=== PATIENT | male | born 1955 | race Caucasian/White ===

== ENCOUNTER 2020-07-09 07:34 | Emergency (ER) | payer OTHER, SELFPAY ==
[2020-07-09] VITALS (16 sets, daily range): BP systolic 103–120; BP diastolic 56–69; PULSE 64–78; RESP 18–26; TEMP 36.4; O2SAT 94–98
--- NOTE | ~2020-07-09 | CT_ITS ---
EXAMINATION: CT abdomen pelvis wo con DATE: 07/09/2020 08:56 INDICATION: Epigastric pain. TECHNIQUE: Computed tomography (CT) of the abdomen and pelvis was performed without intravenous contr ast. Automated exposure control and iterative reconstruction technique were employed. The dose-length product was 868.27 mGy-cm. COMPARISON: None FINDINGS: Small to moderate-sized bilateral pleural effusions with passive compressive atelectasis at the perip jame of the bilateral lower lungs. Cardiomegaly with pulmonary vascular congestion and mild pulmonary edema. Atherosclerotic coronary artery calcification and mitral annulus desiccation. Median sternoto my wires and mediastinal surgical clips are seen, likely from prior coronary artery bypass grafting. Nodular liver surface consistent with cirrhosis. Splenomegaly measuring 16.1 cm in maximal length. A couple tiny gallstones in the normal-appearing gallbladder. Pancreas and bilateral adrenal glands are normal. Bilateral renal cysts the largest on the left measuring 2.8 cm. Calcifications at the bilate ral kidneys which appears primarily related to extensive atherosclerotic disease with calcification s een throughout the aorta and numerous arteries throughout the abdomen, pelvis and proximal thighs. Al though nephrolithiasis cannot be absolutely excluded is considered unlikely and there is no hydroneph rosis. Bowels including the appendix are normal. Moderate amount of ascites throughout the abdomen an d pelvis. Bladder is normal. Prostatomegaly. Extensive body wall edema. Mild lumbar levocurvature wit h mild spondylosis. Bilateral femoral neck lag screws. Subacute left ninth, 10th and 11th rib fractur es with small amounts of callus formation. IMPRESSION: 1. Congestive heart failure with cardiomegaly, coronary artery disease, mild pulmonary edema and smal l to moderate bilateral pleural effusions. 2. Cirrhosis with moderate amount of ascites. 3. Splenomegaly likely related to portal venous hypertension. 4. Prostatomegaly. 5. Cholelithiasis. 6. Subacute left 9th, 10th and 11th rib fractures. Reviewed, dictated and finalized at location [facility] [employer] IMPRESSION: 1. Congestive heart failure with cardiomegaly, coronary artery disease, mild pu lmonary edema and small to moderate bilateral pleural effusions. 2. Cirrhosis with moderate amount of ascites. 3. Splenomegaly likely related to portal venous hypertension. 4. Prostatomegaly. 5. Cholelithiasis. 6. Subacute left 9th, 10th and 11th rib fractures.
--- NOTE | 2020-07-09 08:35 | ED.ABDPAIN ---
HPI - Abdominal Pain General Chief Complaint: Abdominal Pain Stated Complaint: abd pain Time Seen by Provider: 07/09/20 07:45 Source: patient Mode of arrival: EMS Limitations: no limitations History of Present Illness HPI narrative: 65-year-old man Hemodialysis patient Also history of CABG Presents from his hemodialysis clinic appointment for evaluation of abdominal pain Patient states he was about nursing home through his dialysis and started to get nauseated. 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[place] [employer] Home Medications Medication Instructions Recorded Confirmed B complex with C 20-folic acid cap 07/09/20 [[place] Caps] amlodipine 07/09/20 apixaban [Eliquis] mg 07/09/20 aspirin [Adult Low Dose Aspirin] 81 mg PO DAILY 07/09/20 atorvastatin 07/09/20 duloxetine mg PO 07/09/20 insulin detemir U-100 [Levemir SUBCUT BID 07/09/20 U-100 Insulin] insulin lispro [Humalog Pen] unit SUBCUT 07/09/20 meclizine 25 mg PO TID PRN 07/09/20 metoprolol tartrate 07/09/20 pantoprazole 40 mg PO BID 07/09/20 sevelamer carbonate 800 mg PO TID 07/09/20 torsemide 100 mg PO QAM 07/09/20 Allergies Allergy/AdvReac Type Severity Reaction Status Date / Time midazolam Allergy Mild Unknown Verified 07/09/20 07:46 iodine Allergy Unknown Unknown Verified 07/09/20 07:46 Contrast Media Allergy Intermediate Hives / Uncoded 07/30/17 11:29 Red Face Review of Systems Review of Systems: All systems reviewed & are unremarkable except as noted in HPI and below Constitutional: Constitutional: Denies chills, Denies fatigue, Denies fever(s), Denies headache(s) and Denies weakness Eyes: Eyes: Reports no additional eye complaints and Denies change in vision ENT: Denies headache(s), Denies epistaxis, Denies nasal congestion and Denies sore throat Cardiovascular: Cardiovascular: Denies chest pain, Denies leg edema, Denies palpitations and Denies dyspnea Respiratory: Respiratory: Denies cough, Denies dyspnea and Denies wheezing Gastrointestinal: Gastrointestinal: Reports as per HPI Genitourinary: Genitourinary: Reports no additional male genitourinary complaints Musculoskeletal: Musculoskeletal: Denies deformity, Denies arthralgias, Denies joint swelling, Denies muscle weakness and Denies numbness Integumentary/Breasts: Skin/Breast: Denies rash and Denies wounds Neurologic: Denies headache(s), Denies focal weakness, Denies numbness and Denies weakness Psychiatric: Psychiatric: Reports no additional psychiatric complaints Endocrine: Endocrine: Denies fatigue and Denies palpitations [facility] Social History Social History Smoking status: Never smoker Alcohol intake: never Gender identity (if verbalized by the patient): Male Exam Const: General: no acute distress, well developed and awake Orientation/consciousness: patient oriented x3 (alert) Limitations: no limitations HENMT: Head: normocephalic and atraumatic Ears: external ears normal General nose exam: No nasal discharge present and no epistaxis Face and sinus: face symmetric Eyes: Conjunctivae: conjunctivae normal Sclera: sclerae normal EOM: EOMs intact bilaterally Neck: Neck: normal visual inspection, supple and no JVD Chest: Chest palpation & inspection: deferred Resp: Effort & Inspection: normal respiratory effort Auscultation: clear to auscultation bilaterally, no rales, no rhonchi, no wheezes and other (BS =) Cardio: Rate: regular rate Rhythm: regular rhythm Heart sounds: no gallops and Murmur heart so
[2020-07-09 08:44] LABS: Basophils Percent Auto 0.4 % (0.2-1.2); Eosinophils Absolute Auto 0.2 K/mm3 (0-0.3); Eosinophils Percent Auto 2.7 % (0-4.4); Hematocrit 25.2 % (42.0-52.0); Hemoglobin 7.9 g/dL (14.0-18.0); Immature Granulocyte Absolute 0.02 K/mm3 (0.00-0.031); Immature Granulocyte Percent A 0.4 % (0-0.5); Lymphocytes Absolute Auto 1.03 K/mm3 (0.9-3.2); Lymphocytes Percent Auto 18.3 % (18.3-44.2); Mean Corpuscular HGB Conc 31.3 g/dl (32-36); Mean Corpuscular Hemoglobin 31.7 pg (26-34); Mean Corpuscular Volume 101.2 fl (80-100); Mean Platelet Volume 10.9 fl (7.4-10.4); Monocytes Absolute Auto 0.6 K/mm3 (0.1-0.6); Monocytes Percent Auto 10.1 % (2.6-8.5); Neutrophils Absolute Auto 3.8 K/mm3 (1.3-6.7); Neutrophils Percent Auto 68.1 % (45.5-73.1); Platelet Count Result 189 k/mm3 (150-375); Red Blood Count 2.49 M/mm3 (4.6-6.20); Red Cell Distribution Width 16.5 % (11.5-14.5); White Blood Count 5.6 K/mm3 (4.5-10.0)
[2020-07-09] MEDS: BELLADONNA ALK/PHENOB ELIX 10 ML, MAG HYDROX/ALUMINUM HYD/SIMETH 30 ML, LIDOCAINE HCL 2... PO (08:49)
[2020-07-09 08:55] LABS: Alanine Aminotransferase 14 U/L (4-50); Albumin Level 3.9 g/dL (3.5-5.1); Alkaline Phosphatase 58 U/L (38-126); Anion Gap 14 mmol/L (8-16); Aspartate Amino Transferase 19 U/L (17-59); Bilirubin,Total 0.7 mg/dL (0.2-1.3); Blood Urea Nitrogen 37 mg/dL (9-20); Calcium 8.8 mg/dL (8.4-10.2); Carbon Dioxide 29 mmol/L (22-30); Chloride 92 mmol/L (98-107); Estimated CRCL calculation 15 ml/min; Estimated Glomerular Filt Rate 11; Glucose 203 mg/dL (75-110); Lipase 128 U/L (23-300); Potassium 4.4 mmol/L (3.4-5.0); Sodium 135 mmol/L (137-145)
--- NOTE | 2020-07-09 09:37 | PC.NURSE ---
Pt reports is painfree at present time. Denies nausea.
== END 2020-07-09 11:27 | disposition home or self-care (01) ==
PROVIDERS: Emergency Provider Emergency Medicine; PCP Internal Medicine Rheumatology
DX: R10.9 Unspecified abdominal pain (principal); N18.6 End stage renal disease; Z99.2 Dependence on renal dialysis; J90 Pleural effusion, not elsewhere classified; D64.9 Anemia, unspecified; I50.9 Heart failure, unspecified; K74.60 Unspecified cirrhosis of liver
CPT/HCPCS: 36415; 74176; 80053; 83690; 85025; 99284; A9270